=== PATIENT | female | born 1995 | race Caucasian/White ===

== ENCOUNTER 2018-08-22 13:21 | Emergency (ER) | payer BC ==
[2018-08-22 14:14] VITALS: BP 141/73
--- NOTE | 2018-08-22 17:57 | ED ---
Laceration/Wound HPI - HPI Summary HPI Summary: Patient is a 23-year-old female who presents emergency Department with a laceration to her left distal second digit of hand that occurred a few hours ago. Patient states she was cutting something with a knife in the kitchen when it slipped and cut her finger. Patient states she cleaned wound and applied pressure but bleeding persists. Immunizations are up-to-date. No past medical history. Symptoms are mild in severity. No current modifying factors. - History of Current Complaint Stated Complaint: LT POINTER FINGER LAC Time Seen by Provider: 08/22/18 13:38 Hx Obtained From: Patient Pain Intensity: 2 Pain Scale Used: 0-10 Numeric - Allergy/Home Medications Allergies/Adverse Reactions: Allergies Allergy/AdvReac Type Severity Reaction Status Date / Time No Known Allergies Allergy Verified 08/22/18 13:25 Home Medications: Home Medications Sertraline* [Zoloft*] 50 mg PO DAILY 08/22/18 [History Confirmed 08/22/18] PMH/Surg Hx/FS Hx/Imm Hx Previously Healthy: Yes - Immunization History Date of Tetanus Vaccine: within 5years Infectious Disease History: No Infectious Disease History: Denies: Traveled Outside the [place] in Last 30 Days - Family History Known Family History: Positive: Non-Contributory - Social History Occupation: Student Lives: Dormitory/Roommates Alcohol Use: Weekly Substance Use Type: Reports: None Smoking Status (MU): Never Smoked Tobacco Review of Systems Positive: Other - laceration to left pointer finger All Other Systems Reviewed And Are Negative: Yes Physical Exam Triage Information Reviewed: Yes Vital Signs On Initial Exam: Initial Vitals Temp Pulse Resp BP Pulse Ox 97.7 F 65 16 143/73 99 08/22/18 13:22 08/22/18 13:22 08/22/18 13:22 08/22/18 13:22 08/22/18 13:22 Vital Signs Reviewed: Yes Appearance: Positive: Well-Appearing - Pt. sitting in chair in NAD. Dressing on second finger. Skin: Positive: Warm Head/Face: Positive: Normal Head/Face Inspection Eyes: Positive: Normal, EOMI Neck: Positive: Supple Musculoskeletal: Positive: Other - To the distal 2nd digit of left hand there is a deep skin avulsion noted to the lateral aspect of digit. No nail involvement. Full ROM of digit. Mild active bleeding to wound Neurological: Positive: Normal, CN Intact II-III Psychiatric: Positive: Affect/Mood Appropriate Procedures - Procedure Summary Procedure Summary: Wound care: Skin avulsion to left index finger was irrigated and cleaned with hibiclens. Pt. notes bleeding has been ongoing for a few hours. Bleeding is mild at this time. Small piece of surgicel placed and pressure dressing placed. Diagnostics - Vital Signs Vital Signs Temp Pulse Resp BP Pulse Ox 08/22/18 14:05 97.6 F 66 16 141/73 99 08/22/18 13:22 97.7 F 65 16 143/73 99 - Laboratory Lab Statement: Any lab studies that have been ordered have been reviewed, and results considered in the medical decision making process. Laceration Repair Course/Dx - Course Course Of Treatment: Pt. presenting for finger avulsion that was addressed as noted above. Bleeding has tampanoded and pt. will be dc home. Advised to keep dressing in place until tomorrow. TO keep wound clean and dry. To f.u with the [facility] if needed. To return to ER for redness, swelling or drainage from wound. To apply pressure and elevate if bleeding returns. - Differential Dx Differental Diagnoses: Abrasion, Laceration, Puncture Wound - Clinical Impression Provider Diagnoses: Finger avulsion Discharge - Sign-Out/Discharge Documenting (check all that apply): Patient Departure - Discharge Plan Condition: Good Disposition: HOME Patient Education Materials: Skin Avulsion (ED) Referrals: [facility] [Outside] No Primary Care Phys,NOPCP [Primary Care Provider] - Additional Instructions: Follow up with [facility] for a wound check Keep dressing in place until tomorrow Keep wound clean and dry Can apply over the counter antibiotic ointment such neosporin If bleeding returns apply pressure, elevate and apply ice Tylenol or Motrin for pain as directed Return to ER for redness, swelling, or drainage from wound - Billing Disposition and Condition Condition: GOOD Disposition: Home
== END 2018-08-22 14:05 | disposition home or self-care (01) ==
LOC: ED 13:21
DX: S61.211A Laceration without foreign body of left index finger without damage to nail, initial encounter (principal); W26.0XXA Contact with knife, initial encounter; Y92.000 Kitchen of unspecified non-institutional (private) residence as the place of occurrence of the external cause
CPT/HCPCS: 99282